=== PATIENT | female | born 1970 | race Hispanic/Latino ===

== ENCOUNTER 2019-03-05 15:24 | Observation (INO) | payer MEDICARE ==
[2019-03-05] MEDS ORDERED: ONDANSETRON HCL 4 MG/2 ML VIAL ONE (16:06)
[2019-03-05] MEDS ORDERED: MORPHINE SULFATE 2 MG/ML 1ML SYG ONE (16:06)
[2019-03-05 16:13] LABS: BASOPHILS % (AUTO) 0.8 % (0.0-5.0); EOSINOPHILS % (AUTO) 0.6 % (0.0-8.0); HEMATOCRIT 31.5 % (36-48); LYMPHOCYTES % (AUTO) 8.6 % (21.0-51.0); MEAN CORPUSCULAR HEMOGLOBIN 28.7 pg (27.0-33.0); MEAN CORPUSCULAR HGB CONC 33.8 g/dL (32.0-36.0); MEAN CORPUSCULAR VOLUME 85.1 fL (79-99); MONOCYTES % (AUTO) 3.6 % (3.0-13.0); NEUTROPHILS % (AUTO) 86.4 % (40.0-77.0); PLATELET COUNT (AUTO) 242 K/uL (130-400); RED CELL DISTRIBUTION WIDTH 14.9 % (11.0-15.5); WHITE BLOOD COUNT (AUTO) 11.5 K/uL (4.8-10.8)
[2019-03-05 16:29] LABS: CREATININE 1.7 mg/dL (0.5-1.5); POTASSIUM 4.9 mmol/L (3.5-5.1)
[2019-03-05 16:33] LABS: ALBUMIN 2.7 g/dL (3.5-5.0); BILIRUBIN,TOTAL 0.2 mg/dL (0.2-1.0); TOTAL PROTEIN, SERUM 7.1 g/dL (6.0-8.3)
[2019-03-05] MEDS ORDERED: MORPHINE SULFATE 4 MG/1ML SYG ONE (17:53)
[2019-03-05] MEDS ORDERED: SODIUM CHLORIDE 0.9% 50 ML IV ONE ×2 (17:54→19:10)
[2019-03-05 18:19] LABS: APPEARANCE,URINE Cloudy (CLEAR); BILIRUBIN,URINE Negative (NEGATIVE); COLOR,URINE Yellow (YELLOW); GLUCOSE, URINE (UA) 250 mg/dL (NEGATIVE); KETONES,URINE Negative (NEGATIVE); LEUKOCYTE ESTERASE ,URINE Small (NEGATIVE); NITRATE,URINE Negative (NEGATIVE); OCCULT BLOOD,URINE Moderate (NEGATIVE); PH,URINE 5.5 (5.0-8.0); PROTEIN,URINE >=1000 mg/dL (NEGATIVE); UROBILINOGEN,URINE 0.2 mg/dL (0.2-1.0)
[2019-03-05 18:38] LABS: BACTERIA,URINE Many /HPF (None Seen); MUCUS,URINE Few LPF (None Seen)
[2019-03-05] MEDS ORDERED: CEFTRIAXONE SODIUM 1 GM ONE (19:10)
[2019-03-05] MEDS ORDERED: DiphenhydrAMINE HCL 50 MG/ML VIAL ONE (20:36)
[2019-03-05] MEDS ORDERED: SODIUM CHLORIDE 0.9% 1000ML 1,000 ML IV ONE (21:18)
[2019-03-05] MEDS ORDERED: ONDANSETRON HCL 4 MG/2 ML VIAL IVP PRN (21:45)
[2019-03-05] MEDS ORDERED: HYDROMORPHONE 1 MG/1 ML AMP IVP PRN (21:45)
[2019-03-05] MEDS ORDERED: SODIUM CHLORIDE 0.9% 1000ML 1,000 ML IV SCH (21:45)
[2019-03-06 09:06] LABS: BASOPHILS % (AUTO) 1.1 % (0.0-5.0); EOSINOPHILS % (AUTO) 1.3 % (0.0-8.0); LYMPHOCYTES % (AUTO) 14.7 % (21.0-51.0); MEAN CORPUSCULAR HGB CONC 33.6 g/dL (32.0-36.0); MEAN CORPUSCULAR VOLUME 86.2 fL (79-99); MONOCYTES % (AUTO) 7.4 % (3.0-13.0); NEUTROPHILS % (AUTO) 75.5 % (40.0-77.0); PLATELET COUNT (AUTO) 238 K/uL (130-400); RED CELL DISTRIBUTION WIDTH 15.2 % (11.0-15.5); WHITE BLOOD COUNT (AUTO) 9.7 K/uL (4.8-10.8)
[2019-03-06 09:13] LABS: CREATININE 1.8 mg/dL (0.5-1.5); POTASSIUM 4.8 mmol/L (3.5-5.1)
== END 2019-03-06 12:11 | disposition home or self-care (01) ==
LOC: EDH 15:24 → EDHIP 21:06 → INTOOBSV 21:06
PROVIDERS: ADMIT Internal Medicine Nephrology; ATTEND Internal Medicine Nephrology
DX: N13.2 Hydronephrosis with renal and ureteral calculous obstruction (principal); E11.9 Type 2 diabetes mellitus without complications; I10 Essential (primary) hypertension; N19 Unspecified kidney failure; E78.5 Hyperlipidemia, unspecified; Z87.440 Personal history of urinary (tract) infections; Z87.442 Personal history of urinary calculi; Z86.73 Personal history of transient ischemic attack (TIA), and cerebral infarction without residual deficits; Z82.49 Family history of ischemic heart disease and other diseases of the circulatory system; Z83.3 Family history of diabetes mellitus; Z79.899 Other long term (current) drug therapy
CPT/HCPCS: 36415 ×2; 74176; 80048; 80053; 81001; 83690; 85025 ×2; 93005; 99284; G0378 ×4; J0696; J1200; J2270; J2405; J7030

== ENCOUNTER 2019-04-15 23:42 | Inpatient (IN) | payer MEDICARE ==
[~2019-04-15] VITALS: Ht 167.6 cm; Wt 80.6 kg
[2019-04-16 00:49] LABS: BASOPHILS % (AUTO) 0.7 % (0.0-5.0); EOSINOPHILS % (AUTO) 1.2 % (0.0-8.0); HEMATOCRIT 32.9 % (36-48); LYMPHOCYTES % (AUTO) 11.4 % (21.0-51.0); MEAN CORPUSCULAR HEMOGLOBIN 28.7 pg (27.0-33.0); MEAN CORPUSCULAR HGB CONC 33.6 g/dL (32.0-36.0); MEAN CORPUSCULAR VOLUME 85.5 fL (79-99); MONOCYTES % (AUTO) 6.4 % (3.0-13.0); NEUTROPHILS % (AUTO) 80.3 % (40.0-77.0); PLATELET COUNT (AUTO) 232 K/uL (130-400); RED BLOOD CELL COUNT(AUTO) 3.85 MIL/uL (4.00-5.50); RED CELL DISTRIBUTION WIDTH 13.9 % (11.0-15.5); WHITE BLOOD COUNT (AUTO) 11.5 K/uL (4.8-10.8)
[2019-04-16 00:53] LABS: CREATININE 2.3 mg/dL (0.5-1.5)
[2019-04-16 01:01] LABS: INR 0.91 (0.85-1.15); PARTIAL THROMBOPLASTIN TIME 26.3 SEC (26.3-35.5); PROTHROMBIN TIME 9.6 SEC (9.6-11.6)
[2019-04-16 01:03] LABS: ALBUMIN 2.6 g/dL (3.5-5.0); BILIRUBIN,TOTAL 0.3 mg/dL (0.2-1.0)
[2019-04-16 01:15] LABS: APPEARANCE,URINE Turbid (CLEAR); BILIRUBIN,URINE Negative (NEGATIVE); COLOR,URINE Yellow (YELLOW); GLUCOSE, URINE (UA) 250 mg/dL (NEGATIVE); KETONES,URINE Negative (NEGATIVE); LEUKOCYTE ESTERASE ,URINE Negative (NEGATIVE); NITRATE,URINE Negative (NEGATIVE); OCCULT BLOOD,URINE Small (NEGATIVE); PROTEIN,URINE >=1000 mg/dL (NEGATIVE); UROBILINOGEN,URINE 0.2 mg/dL (0.2-1.0)
[2019-04-16 01:38] LABS: AMORPHOUS SEDIMENT,UR Many /LPF (None Seen); BACTERIA,URINE None Seen /HPF (None Seen); MUCUS,URINE Moderate LPF (None Seen); RBC,URINE 0-1 /HPF (0-1); SQUAMOUS EPITHELIAL CELL,UR Moderate /HPF (0-2); WBC,URINE None Seen /HPF (0-1)
[2019-04-16] MEDS ORDERED: TAMSULOSIN HCL 0.4 MG CAP.ER.24H ONE (02:39)
[2019-04-16] MEDS ORDERED: KETOROLAC TROMETHAMINE 15MG/ML ONE (02:40)
[2019-04-16] MEDS ORDERED: CEFTRIAXONE SODIUM 1 GM ONE (02:40)
[2019-04-16] MEDS ORDERED: HYDRALAZINE HCL 20 MG/ML VIAL ONE (02:56)
[2019-04-16] MEDS ORDERED: ONDANSETRON HCL 4 MG/2 ML VIAL ONE (02:57)
[2019-04-16 04:22] VITALS: BP 160/81
--- NOTE | 2019-04-16 04:30 | NUR ---
NEW ADMIT 49Y/O FEMALE ADMITTED INTO ROOM 308. PT AAO BUT FLAT AFFECT NOTED. PT ORIENTED TO ROOM ND CALLBELL. FOR MORE INFORMATION SEE NURSING DATA BASE PT HX AND ASSESSMENT.
[2019-04-16] MEDS ORDERED: DEXTROSE 50%-WATER 50 ML DISP.SYRIN IV PRN (05:30)
[2019-04-16] MEDS ORDERED: GLUCAGON 1MG KIT 1 MG ML IM PRN (05:30)
[2019-04-16] MEDS ORDERED: ONDANSETRON HCL 4 MG/2 ML VIAL IVP PRN (05:30)
[2019-04-16] MEDS: CEFTRIAXONE SODIUM 1 GM IVP SCH (06:00)
[2019-04-16] MEDS ORDERED: LISI-613 PO (06:07)
[2019-04-16] MEDS ORDERED: GLIP10TA9 PO (06:07)
[2019-04-16] MEDS: INSULIN R PO SS1 SQ SCH ×4 (06:28→21:00)
[2019-04-16 08:00] VITALS: BP 131/71
[2019-04-16] MEDS: FAMOTIDINE/PF 20 MG/2 ML VIAL IV SCH (09:50)
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
--- NOTE | 2019-04-16 11:17 | NUR ---
CM NOTE PER PATIENT, SHE IS INDEPENDENT, LIVES ALONE, HAS TROUBLE WITH SIGHT BUT HAS A SMALL LIVING AREA SO SHE IS FAMILIAR WITH SURROUNDING, HAS CANE, NO PROVIDER, DOESNT DRIVE, REFERRED TO [facility] FOR DISCHARGE NEEDS REQUIRING TRANSPORTATION, SAFE TO RETURN HOME. Addendum: 04/16/19 at 1120 by SCOTT JIMENEZ RN CM Amended: Links added.
[2019-04-16 12:00] VITALS: BP 131/89
[2019-04-16 16:00] VITALS: BP 163/81
--- NOTE | 2019-04-16 16:19 | NUR ---
DIET EDUCATION RD provided Cholelithiasis Diet education to Pt. RD reviewed reference materials and handouts with Pt. Pt with multiple questions. RD answered all questions. Pt verbalized understanding. RD encouraged Pt to notify as additional questions or concerns arise. Pt admitted for Ureterolithiasis, UTI, DM, Proteinuria. RD notified for Pt requested Gall Stone Diet Education. Pt NPO at time of education, Pending CT of abdomen, pending urology consult. RD to continue to monitor. Addendum: 04/16/19 at [address] RD Amended: Links added.
--- NOTE | 2019-04-16 19:30 | NUR ---
LALITO FENTON Rounded: Seen and examined pt. with an order to have NM Renal Scan shankar (04/17/19). - carried out.
[2019-04-16 19:58] VITALS: BP 159/80
[2019-04-16] MEDS: ACETAMINOPHEN 325 MG TAB PO PRN (22:26)
[2019-04-16 23:37] VITALS: BP 131/75
[2019-04-17] MEDS: ACETAMINOPHEN 325 MG TAB PO PRN (03:33)
[2019-04-17 04:00] VITALS: BP 148/78
[2019-04-17 05:03] LABS: EOSINOPHILS % (AUTO) 2.7 % (0.0-8.0); HEMATOCRIT 29.2 % (36-48); LYMPHOCYTES % (AUTO) 11.8 % (21.0-51.0); MEAN CORPUSCULAR HGB CONC 34.5 g/dL (32.0-36.0); MEAN CORPUSCULAR VOLUME 86.7 fL (79-99); MONOCYTES % (AUTO) 7.5 % (3.0-13.0); PLATELET COUNT (AUTO) 194 K/uL (130-400); RED BLOOD CELL COUNT(AUTO) 3.37 MIL/uL (4.00-5.50); RED CELL DISTRIBUTION WIDTH 13.9 % (11.0-15.5); WHITE BLOOD COUNT (AUTO) 7.7 K/uL (4.8-10.8)
[2019-04-17] MEDS: INSULIN R PO SS1 SQ SCH (05:17)
[2019-04-17 05:38] LABS: CREATININE 2.5 mg/dL (0.5-1.5); PHOSPHORUS 4.7 mg/dL (2.5-4.9); URIC ACID 7.7 mg/dL (2.6-7.2)
[2019-04-17] MEDS: CEFTRIAXONE SODIUM 1 GM IVP SCH (05:41)
[2019-04-17 07:00] VITALS: BP 145/78
[2019-04-17] MEDS: FAMOTIDINE/PF 20 MG/2 ML VIAL IV SCH (10:13)
--- NOTE | 2019-04-17 10:17 | NUR ---
AMA PATIENT IS CRYING AND STATED " I CAN DO GO HOME AND PASS THE STONE THERE BY TRYING HOME REMEDIES SUCH DRINKING CRANBERRY JUICE. PAGED DR STONER TO MAKE AWARE OF SITUATION.
--- NOTE | 2019-04-17 10:33 | NUR ---
DR HERBIE STONER INFORMED PATIENT IS WANTING TO LEAVE AGAINST MEDICAL ADVICE. DR STONER SAID THAT HE WILL STOP BY IN 1.5 HOURS HOWEVER IF PATIENT INSISTS ON LEAVING SHE CAN SIGN AMA FORM.
--- NOTE | 2019-04-17 11:14 | NUR ---
PATIENT WANTS TO LEAVE AMA THIS CM ADVISD BY CINTHYA THAT PT IS READY TO LEAVE AMA, REVIEWED WITH PATIENT WHAT THE MD'S HAVE TOLD HER. PT STILL WANTS TO LEAVE AMA, DISPO DONE Addendum: 04/17/19 at 1116 by JEAN-PAUL CAMPBELL RN CM Amended: Links added.
== END 2019-04-17 11:30 | disposition left against medical advice (07) | DRG 690 ==
LOC: EDH 23:42 → EDHIP 04-16 03:04 → OBSVTOIN 04-16 03:04 → 3BH 04-16 04:00
PROVIDERS: ADMIT Internal Medicine Nephrology; ATTEND Internal Medicine Nephrology
DX: N13.6 Pyonephrosis (principal); H33.21 Serous retinal detachment, right eye; E78.5 Hyperlipidemia, unspecified; E11.21 Type 2 diabetes mellitus with diabetic nephropathy; I10 Essential (primary) hypertension; E11.36 Type 2 diabetes mellitus with diabetic cataract; D64.9 Anemia, unspecified; Z86.73 Personal history of transient ischemic attack (TIA), and cerebral infarction without residual deficits; I25.2 Old myocardial infarction; Z98.891 History of uterine scar from previous surgery
CPT/HCPCS: 36415; 74176; 80048; 80053; 81001; 82150; 82550; 82948; 83605; 83690; 83880; 83970; 84100; 84484; 84550; 85025; 85610; 85730; 87040; 87088; 93005; G0378; J0360; J0696; J1885; J2405; J3490; J7070